=== PATIENT | female | born 1985 | race Two or more races ===

== ENCOUNTER 2018-11-03 08:38 | Emergency (ER) | payer MEDICAID ==
[~2018-11-03] VITALS: Ht 165.1 cm; Wt 65.8 kg
[~2018-11-03 08:38] MED LIST: ALBUAER3 IN; OMEP20TA44 PO; OXYC10TA44 PO; SUCR1TAB PO
[2018-11-03 08:45] VITALS: BP 142/85
[2018-11-03] MEDS ORDERED: IBUPROFEN 800 MG TAB PO ONE (09:15)
== END 2018-11-03 09:55 | disposition home or self-care (01) ==
LOC: ER 08:38
DX: S83.91XA Sprain of unspecified site of right knee, initial encounter (principal); Z90.49 Acquired absence of other specified parts of digestive tract; Z88.6 Allergy status to analgesic agent; X50.1XXA Overexertion from prolonged static or awkward postures, initial encounter; Y93.41 Activity, dancing; Y92.89 Other specified places as the place of occurrence of the external cause; Y99.8 Other external cause status
CPT/HCPCS: 73562